=== PATIENT | male | born 1995 | race Caucasian/White ===

== ENCOUNTER 2016-10-15 20:53 | Emergency (ER) | payer SELFPAY ==
[2016-10-15] MEDS ORDERED: Ketorolac INJ* 60 MG/2 ML VIAL IM ONE (21:27)
--- NOTE | 2016-10-15 21:36 | UC ---
Back Pain HPI - HPI Summary HPI Summary: On and off back pain for years. the past two weeks it has been much worse, no known mechanism of injury. pain is centrally located around L4 L5, radiated to the left. - History of Current Complaint Chief Complaint: UCSkin Stated Complaint: BACK PAIN Time Seen by Provider: 10/15/16 21:20 Hx Obtained From: Patient Onset/Duration: Gradual Onset, Lasting Weeks Severity Initially: Moderate Severity Currently: Severe Back Pain: Is Discrete @, Radiates To - left lumbar Character: Aching, Spasmodic Aggravating: Movement Alleviating: Nothing Associated Signs And Symptoms: Positive: Pain with Weight Bearing - Allergies/Home Medications Allergies/Adverse Reactions: Allergies Allergy/AdvReac Type Severity Reaction Status Date / Time Adhesive Tape Allergy Itching Verified 10/15/16 21:20 Latex Allergy See Comment Verified 10/15/16 21:20 ADHD med Allergy See Comment Uncoded 10/15/16 21:21 environmental Allergy Runny Nose Uncoded 10/15/16 21:20 Home Medications: Home Medications Fexofenadine HCl [Allergy 24-Hr] 180 mg PO DAILY 10/15/16 [History Confirmed 02/24] PMH/Surg Hx/FS Hx/Imm Hx Previously Healthy: Yes Respiratory History Of: Reports: Asthma, Bronchitis - Surgical History Surgical History: Yes Surgery Procedure, Year, and Place: Tonsillectomy & Adenoidectomy, 2010, [facility]. Ear Tubes as Toddler - Family History Known Family History: Positive: Hypertension - Social History Alcohol Use: Occasionally Substance Use Type: None Substance Use Comment - Amount & Last Used: last week Smoking Status (MU): Former Smoker Type: Smokeless Tobacco Amount Used/How Often: > 1/2 can a day Have You Smoked in the Last Year: No - Immunization History Most Recent Influenza Vaccination: Not the 2014/2015 Season Most Recent Tetanus Shot: 08/28/12 Vaccination Up to Date: Yes Review of Systems Constitutional: Negative Skin: Negative Eyes: Negative ENT: Negative Respiratory: Negative Cardiovascular: Negative Gastrointestinal: Negative Genitourinary: Negative Motor: Negative Neurovascular: Negative Musculoskeletal: Arthralgia, Decreased ROM, Myalgia Neurological: Negative Psychological: Negative All Other Systems Reviewed And Are Negative: Yes Physical Exam Triage Information Reviewed: Yes Appearance: Well-Appearing, Pain Distress, Obese Vital Signs: Initial Vital Signs Temp 98.4 F 10/15/16 21:07 Pulse 106 10/15/16 21:07 Resp 18 10/15/16 21:07 BP 132/77 10/15/16 21:07 Pulse Ox 98 10/15/16 21:07 Vital Signs Reviewed: Yes Eye Exam: Normal Eyes: Positive: Conjunctiva Clear ENT Exam: Normal ENT: Positive: Normal ENT inspection, Hearing grossly normal, Pharynx normal, TMs normal Dental Exam: Normal Neck exam: Normal Neck: Positive: Supple, Nontender, No Lymphadenopathy Respiratory Exam: Normal Respiratory: Positive: Chest non-tender, Lungs clear, Normal breath sounds Cardiovascular Exam: Normal Cardiovascular: Positive: RRR, No Murmur, Pulses Normal Abdominal Exam: Normal Abdomen Description: Positive: Nontender, No Organomegaly, Soft Bowel Sounds: Positive: Present Musculoskeletal Exam: Normal Musculoskeletal: Positive: No Edema, Strength Limited @ - with weight bearing, hard to stand up straight, ROM Limited @ - pk and ext, rotation of spine Neurological Exam: Normal Neurological: Positive: Alert, Muscle Tone Normal Psychological Exam: Normal Skin: Positive: Other - 2 warts on hand Back Pain Course/Dx - Course Course Of Treatment: hx obtained, exam performed, toradol given, xray obtained. - Differential Dx/Diagnosis Differential Diagnosis/HQI/PQRI: Herniated Disc, Strain, Sprain Provider Diagnoses: muscle strain. warts Discharge - Discharge Plan Condition: Stable Disposition: HOME Patient Education Materials: Low Back Strain (ED) Additional Instructions: we gave you a shot of toradol today no more aleve or advil till tomorrow morning. 1. heat 20 minutes at a time 2. stretch 3. use aleve or advil as needed. I am including a Physical Therapy referral I recommend follow up as this has become a chronic issue. 4. try over the counter compound W for the wart per direction on the bottle. follow up with a deflector operator if not successful treatment
--- NOTE | 2016-10-15 22:01 | RAD ---
INDICATION: Back pain COMPARISON: None TECHNIQUE: A partial, 2 view examination is submitted . FINDINGS: Bones: There are no acute bony findings. There are no significant osteoarthritic findings. Alignment: Normal Disc spaces: The disc spaces are well-maintained Soft tissues: There are no soft tissue abnormalities. IMPRESSION: A PARTIAL 2 VIEW STUDY DEMONSTRATES NO ACUTE BONY FINDINGS
[2016-10-15 22:08] VITALS: BP 135/73
== END 2016-10-15 22:08 | disposition home or self-care (01) ==
LOC: UCCORT 20:53
DX: S39.012A Strain of muscle, fascia and tendon of lower back, initial encounter (principal); X58.XXXA Exposure to other specified factors, initial encounter; Y93.9 Activity, unspecified; Y92.9 Unspecified place or not applicable; B07.9 Viral wart, unspecified; Z87.891 Personal history of nicotine dependence
CPT/HCPCS: 72100; 96372; 99212; G0463; J1885

== ENCOUNTER 2017-06-23 21:13 | Emergency (ER) | payer SELFPAY ==
[2017-06-23 21:32] VITALS: BP 141/87
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
== END 2017-06-23 22:34 | disposition home or self-care (01) ==
LOC: UCCORT 21:13
DX: J02.9 Acute pharyngitis, unspecified (principal); M89.8X6 Other specified disorders of bone, lower leg; Z90.89 Acquired absence of other organs; Z91.040 Latex allergy status; Z88.8 Allergy status to other drugs, medicaments and biological substances; Z91.048 Other nonmedicinal substance allergy status; Z87.891 Personal history of nicotine dependence
CPT/HCPCS: 87651; 99212; G0463

== ENCOUNTER 2018-08-22 12:45 | Emergency (ER) | payer SELFPAY ==
[2018-08-22 13:42] VITALS: BP 99/75
--- NOTE | 2018-08-22 13:47 | UC ---
Eye Complaint HPI - HPI Summary HPI Summary: L eye discharge and mild pain after noticing some styes, one of which has resolved. 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 denies vision changes but did note some blurriness when he had some discharge. Feels it has improved. - History of Current Complaint Chief Complaint: UCEye Stated Complaint: LEFT EYE Time Seen by Provider: 08/22/18 13:30 Hx Obtained From: Patient Onset/Duration: Gradual Onset Pain Intensity: 4 Pain Scale Used: 0-10 Numeric Location of Injury: Eye Lid (upper) Character: Sharp Aggravating Factor(s): Nothing Alleviating Factor(s): Nothing Associated Signs And Symptoms: Positive: Drainage (Clear). Negative: Fever, Swelling - Allergies/Home Medications Allergies/Adverse Reactions: Allergies Allergy/AdvReac Type Severity Reaction Status Date / Time Adhesive Tape Allergy Itching Verified 08/22/18 13:33 latex Allergy Itching Verified 08/22/18 13:33 methylphenidate Allergy See Comment Verified 08/22/18 13:33 [From [employer]] environmental Allergy Runny Nose Uncoded 08/22/18 13:33 PMH/Surg Hx/FS Hx/Imm Hx - Additional Past Medical History Additional PMH: obesity Previously Healthy: Yes - Surgical History Surgical History: Yes Surgery Procedure, Year, and Place: Tonsillectomy & Adenoidectomy, 2010, [facility]. Ear Tubes as Toddler - Family History Known Family History: Positive: Hypertension - Social History Alcohol Use: Occasionally Substance Use Type: Marijuana Substance Use Comment - Amount & Last Used: daily Smoking Status (MU): Former Smoker Type: Smokeless Tobacco Amount Used/How Often: 1 can every 4-5 days Length of Time of Smoking/Using Tobacco: since age 13 Have You Smoked in the Last Year: No - Immunization History Most Recent Influenza Vaccination: Not the 2015/2015 Season Most Recent Tetanus Shot: 08/28/12 Vaccination Up to Date: Yes Review of Systems All Other Systems Reviewed And Are Negative: Yes Constitutional: Negative: Fever Eyes: Positive: Drainage - L eye, Other - L upper eyelid stye. Negative: Blurred Vision Physical Exam Triage Information Reviewed: Yes Appearance: Well-Appearing Vital Signs: Initial Vital Signs Temp 98.0 F 08/22/18 13:33 Pulse 96 08/22/18 13:33 Resp 19 08/22/18 13:33 BP 99/75 08/22/18 13:33 Pulse Ox 98 08/22/18 13:33 Eye Exam: Normal Eyes: Positive: Conjunctiva Clear, Other: - L eyelid unremarkable, able to lift upper eyelid and note lacrimal gland w/ no swelling or irriation or redness. L cheekbone and upper eyebrow area unremarkble. PERRLA AND L EOM is full and w/ out pain.. Negative: Conjunctiva Inflamed, Discharge Eye Complaint Course/Dx - Course Course Of Treatment: 1 mo. ago w/ resolving and new styes developing in L upper eyelid. No eye injury or exposure to foreign bodies. Exam did not show any new or inflammed styes, lacrimal gland noted. Nontender in L eye area throughout. No signs of infection or cellulitis. advised to get physician checked w/ pcp. - Differential Dx/Diagnosis Differential Diagnosis/HQI/PQRI: Foreign Body, Other Provider Diagnosis: Chalazion left eye, unspecified eyelid Discharge - Sign-Out/Discharge Documenting (check all that apply): Patient Departure All imaging exams completed and their final reports reviewed: No Studies - Discharge Plan Condition: Good Disposition: HOME Prescriptions: Ibuprofen [Ibu] 600 mg PO TID 5 Days #15 tablet Patient Education Materials: Chalazion (ED) Referrals: No Primary Care Phys,NOPCP [Primary Care Provider] - Additional Instructions: Your case of a stye is mild but please return if your eyelid starts swelling or the area becomes very red or your vision changes. You should consider getting your vision checked either way. - Billing Disposition and Condition Condition: GOOD Disposition: Home
== END 2018-08-22 14:14 | disposition home or self-care (01) ==
LOC: UCCORT 12:45
DX: H00.14 Chalazion left upper eyelid (principal); Z88.8 Allergy status to other drugs, medicaments and biological substances; Z87.891 Personal history of nicotine dependence
CPT/HCPCS: 99212; G0463

== ENCOUNTER 2019-11-08 14:38 | Emergency (ER) | payer SELFPAY ==
[2019-11-08 14:57] VITALS: BP 139/79
--- NOTE | 2019-11-08 15:05 | UC ---
Eye Complaint HPI - HPI Summary HPI Summary: 23-year-old male who had an eye infection a few weeks ago and was treated with some antibiotic eye ointment from the emergency room. He states the eye never completely improved and then worsened again and became red with pus drainage over the past few days. He did not follow-up with an gas fitter apprentice following the last infection. - History of Current Complaint Chief Complaint: UCEye Stated Complaint: LEFT EYE COMPLAINT Time Seen by Provider: 11/08/19 14:39 Hx Obtained From: Patient Onset/Duration: Gradual Onset, Lasting Weeks Timing: Constant Severity Initially: Mild Severity Currently: Mild Pain Intensity: 0 Location of Injury: Other - No injury, patient denies any pain Aggravating Factor(s): Nothing Alleviating Factor(s): Nothing Associated Signs And Symptoms: Positive: Drainage (Purulent) - Allergies/Home Medications Allergies/Adverse Reactions: Allergies Allergy/AdvReac Type Severity Reaction Status Date / Time Adhesive Tape Allergy Itching Verified 11/08/19 14:45 latex Allergy Itching Verified 11/08/19 14:45 methylphenidate Allergy See Comment Verified 11/08/19 14:45 [From Concerta] environmental Allergy Runny Nose Uncoded 11/08/19 14:45 Home Medications: Home Medications Erythromycin OPHTH.OINT* [Ilotycin OPHTH.OINT*] 1 applic BOTH EYES BID 11/08/19 [History Confirmed 11/08/19] Tobramycin 0.3% OPHTH.SREE* 1 drop LEFT EYE Q4H 7 Days #1 btl 11/08/19 [Rx] PMH/Surg Hx/FS Hx/Imm Hx Previously Healthy: Yes - Surgical History Surgical History: Yes Surgery Procedure, Year, and Place: Tonsillectomy & Adenoidectomy, 2010, [facility]. Ear Tubes as Toddler - Family History Known Family History: Positive: Hypertension - Social History Occupation: Employed Full-time Lives: With Family Alcohol Use: Occasionally Substance Use Type: None Substance Use Comment - Amount & Last Used: daily Smoking Status (MU): Former Smoker Type: Smokeless Tobacco Amount Used/How Often: 1 can every 4-5 days Length of Time of Smoking/Using Tobacco: since age 13 Have You Smoked in the Last Year: No - Immunization History Most Recent Influenza Vaccination: Not the Season Most Recent Tetanus Shot: 01/18/13 Vaccination Up to Date: Yes Review of Systems All Other Systems Reviewed And Are Negative: Yes Eyes: Positive: Drainage - Yellow pus drainage from the left eye, Eye Redness Is Patient Immunocompromised?: No Physical Exam Triage Information Reviewed: Yes Appearance: Well-Appearing, No Pain Distress, Well-Nourished Vital Signs: Initial Vital Signs Temp 97.2 F 11/08/19 14:47 Pulse 104 11/08/19 14:47 Resp 18 11/08/19 14:47 BP 139/79 11/08/19 14:47 Pulse Ox 98 11/08/19 14:47 Vital Signs Reviewed: Yes Eyes: Positive: Conjunctiva Inflamed, Discharge - Yellow pus drainage, globe is intact, PERRLA, EOMI. ENT: Positive: Normal ENT inspection, Hearing grossly normal, Pharynx normal, TMs normal, Uvula midline Musculoskeletal Exam: Normal Psychological Exam: Normal Skin Exam: Normal Eye Complaint Course/Dx - Course Course Of Treatment: Patient is comfortable here. He denies any eye pain. I'm going to change the antibiotic and he is to follow-up with the gas fitter apprentice in 2 days if no improvement. - Differential Dx/Diagnosis Provider Diagnosis: Left conjunctivitis Discharge ED - Sign-Out/Discharge Documenting (check all that apply): Patient Departure All imaging exams completed and their final reports reviewed: No Studies - Discharge Plan Condition: Good Disposition: HOME Prescriptions: Tobramycin 0.3% OPHTH.SREE* 1 drop LEFT EYE Q4H 7 Days #1 btl Patient Education Materials: Conjunctivitis (ED) Referrals: Chetna Britt MD [Medical Doctor] - No Primary Care Phys,NOPCP [Primary Care Provider] - Mt Palmer MD [Medical Doctor] - Additional Instructions: Good handwashing especially if you touch your eyes. Follow up with the ophthomologist in 2 days if no improvement - Billing Disposition and Condition Condition: GOOD Disposition: Home
== END 2019-11-08 15:11 | disposition home or self-care (01) ==
LOC: UCCORT 14:38
DX: H10.32 Unspecified acute conjunctivitis, left eye (principal); Z91.040 Latex allergy status; Z88.8 Allergy status to other drugs, medicaments and biological substances; Z91.048 Other nonmedicinal substance allergy status; Z87.891 Personal history of nicotine dependence
CPT/HCPCS: 99212; G0463